=== PATIENT | female | born 1970 | race Two or more races ===

== ENCOUNTER 2019-06-22 14:56 | Observation (INO) | payer BC ==
[~2019-06-22] VITALS: Ht 160 cm; Wt 65.0 kg
--- NOTE | 2019-06-22 15:23 | NUR ---
pt to ct via [facility] with hospital medicine director
[2019-06-22 15:32] LABS: BASOPHILS # (AUTO) 0.1 X10'3 (0-0.2); BASOPHILS % (AUTO) 0.9 % (0-1); EOSINOPHILS # (AUTO) 0.2 X10'3 (0-0.9); EOSINOPHILS % (AUTO) 2.5 % (0-6); HEMATOCRIT 41.5 % (35.0-45.0); HEMOGLOBIN 14.1 g/dl (12.0-16.0); LYMPHOCYTES # (AUTO) 2.7 X10'3 (1.1-4.8); LYMPHOCYTES % (AUTO) 29.6 % (21-51); MEAN CORPUSCULAR HEMOGLOBIN 30.6 PG (27.0-31.0); MEAN CORPUSCULAR HGB CONC 33.9 g/dL (33.0-36.5); MEAN CORPUSCULAR VOLUME 90.2 FL (78-98); MEAN PLATELET VOLUME 7.7 FL (7.4-10.4); MONOCYTES # (AUTO) 0.7 X10'3 (0-0.9); MONOCYTES % (AUTO) 7.6 % (2-12); NEUTROPHILS # (AUTO) 5.4 X10'3 (1.8-7.7); NEUTROPHILS % (AUTO) 59.4 % (42-75); PLATELET COUNT 290 X10'3 (140-440); RED CELL DISTRIBUTION WIDTH 14.7 % (11.5-14.5); WHITE BLOOD COUNT 9.1 X10'3 (4.5-11.0)
[2019-06-22 15:46] LABS: PARTIAL THROMBOPLASTIN TIME 25 SECONDS (22-32)
[2019-06-22 15:51] LABS: ALANINE AMINOTRANSFERASE 19 U/L (12-78); ALBUMIN 4.2 G/DL (3.4-5.0); ALKALINE PHOSPHATASE 95 IU/L (46-116); ANION GAP 10 (8-16); ASPARTATE AMINO TRANSFERASE 19 U/L (10-37); BILIRUBIN,TOTAL 0.4 MG/DL (0.1-1.0); BLOOD UREA NITROGEN 8 MG/DL (7-18); BUN/CREATININE RATIO 11.1 (6.6-38.0); CALCIUM 8.9 MG/DL (8.5-10.1); CHLORIDE 104 MMOL/L (99-107); CREATININE 0.72 MG/DL (0.40-0.90); GLUCOSE 89 MG/DL (70-104); SODIUM 139 MMOL/L (135-145); TOTAL CARBON DIOXIDE 24.9 MMOL/L (24-32); TOTAL PROTEIN 8.5 G/DL (6.4-8.2); TROPONIN I < 0.04 NG/ML (0.0-0.05); eGFR 85 ML/MIN
[2019-06-22 15:52] LABS: POTASSIUM 3.8 MMOL/L (3.5-5.1)
[2019-06-22] MEDS ORDERED: aspirin 81mg tab.chew PO ONE (16:20)
[2019-06-22] MEDS ORDERED: NO HOME MEDS (16:35)
[2019-06-22] MEDS ORDERED: ondansetron/PF 4mg/2ml inj IV PRN (16:45)
[2019-06-22] MEDS ORDERED: acetaminophen 325mg tablet PO PRN ×2 (16:45)
[2019-06-22] MEDS ORDERED: mag hydrox/Alum hydrox/simeth 30ml oral suspension PO PRN (16:45)
[2019-06-22] MEDS ORDERED: HYDROcodone/acetaminophen 5mg/325mg tablet PO PRN (16:45)
[2019-06-22] MEDS ORDERED: magnesium hydroxide 30ml (MOM) UD suspension PO PRN (16:45)
[2019-06-22] MEDS ORDERED: morphine 2 MG/ML inj. syringe IV PRN ×2 (16:45)
--- NOTE | 2019-06-22 17:09 | NUR ---
PATIENT AMBUALTED TO BATHROOM WITH STAND BY ASSIST: VERY STEADY ON FEET, 900 ML URINE CLEAR YELLOW .
[2019-06-22 17:18] LABS: CHOL/HDL RATIO 7.5 (0.00-4.99); CHOLESTEROL 278 MG/DL (0-200); HDL CHOLESTEROL 37 MG/DL (35-60); LDL CHOLESTEROL 202 MG/DL (50-100); TRIGLYCERIDES 219 MG/DL (20-135)
[2019-06-22 17:34] LABS: HEMOGLOBIN A1C 6.1 % (4.5-6.2)
--- NOTE | 2019-06-22 18:00 | NUR ---
PT TO MRI
--- NOTE | 2019-06-22 18:18 | NUR ---
PATIENT IN MRI SCAN
--- NOTE | 2019-06-22 18:40 | NUR ---
PATIENT EATING DINNER WNL, NO COUGHING NOTED. FOCAL NEURO DEFICITS NOTED LEFT EYE DROP AND VERY SLIGHT MOUTH DROOP LEFT; ARTICULATE in both sinhala and pashto
--- NOTE | 2019-06-22 19:18 | NUR ---
attempting to call report, rn luz marina
--- NOTE | 2019-06-22 19:23 | NUR ---
PHONE REPORT TO ALEXIS CERVANTES PATIENT TO GO TO ROOM 7696X MONITORED WITH RAE RN: DISCUSSED ALL LABS, STUDIES, VITALS AND NEURO STATUS
[2019-06-22 19:30] VITALS: BP 157/87
[2019-06-22 22:00] VITALS: BP 130/88
[2019-06-23 06:00] VITALS: BP 127/89
--- NOTE | 2019-06-23 06:20 | NUR ---
REPORT GIVEN TO JOHAN CERVANTES
--- NOTE | 2019-06-23 06:22 | NUR ---
received report miguel wilks
--- NOTE | 2019-06-23 06:39 | NUR ---
Patient in room ORTHO 4013. I have received report from Shanita Kam RN and had the opportunity to ask questions and assume patient care.
[2019-06-23 07:29] LABS: CHOL/HDL RATIO 7.6 (0.00-4.99); CHOLESTEROL 260 MG/DL (0-200); HDL CHOLESTEROL 34 MG/DL (35-60); LDL CHOLESTEROL 191 MG/DL (50-100); TRIGLYCERIDES 148 MG/DL (20-135)
[2019-06-23] MEDS ORDERED: aspirin 325mg tablet, delayed-release (Ecotrin) PO SCH (08:00)
[2019-06-23] MEDS ORDERED: PRED10TA23 PO (08:50)
[2019-06-23] MEDS ORDERED: VALA100027 PO (08:50)
--- NOTE | 2019-06-23 09:26 | NUR ---
pt d/c with instructions, understanding of instructions and w/all belongings walking out accompanied by daughter to private vehicle to go home and f/u w/pcp
== END 2019-06-23 09:15 | disposition home or self-care (01) ==
LOC: ER 14:57 → ED HOLD 17:10 → ORTHO 4S 19:35
PROVIDERS: ADMIT Internal Medicine; ATTEND Internal Medicine
DX: G51.0 Bell's palsy (principal); I63.9 Cerebral infarction, unspecified; I10 Essential (primary) hypertension; Z79.899 Other long term (current) drug therapy; Z88.0 Allergy status to penicillin
CPT/HCPCS: 36415; 70450; 70544; 70551; 71045; 80053; 80061; 83036; 83880; 84484; 85025; 85610; 85651; 85730; 87081; 93005; 97161; 99284; G0378